=== PATIENT | female | born 1980 | race African-American/Black ===

== ENCOUNTER 2017-07-22 00:32 | Emergency (ER) | payer OTHER ==
[~2017-07-22] VITALS: Ht 154.9 cm; Wt 80.5 kg
[2017-07-22 00:38] VITALS: BP 155/96
[2017-07-22] MEDS ORDERED: HYDR25TA PO (00:46)
[2017-07-22 02:39] LABS: INFLUENZA TYPE A NEGATIVE FOR TYPE A (NEGATIVE); INFLUENZA TYPE B NEGATIVE FOR TYPE B (NEGATIVE)
== END 2017-07-22 04:12 | disposition left against medical advice (07) ==
LOC: EMS 00:34
DX: R05 Cough (principal); Z53.21 Procedure and treatment not carried out due to patient leaving prior to being seen by health care provider
CPT/HCPCS: 87804; 99281